=== PATIENT | male | born 1990 | race Hispanic/Latino ===

== ENCOUNTER 2023-12-22 13:52 | Emergency (ER) | payer SELFPAY ==
[~2023-12-22] VITALS: Ht 165.1 cm; Wt 117.0 kg
[2023-12-22] VITALS (8 sets, daily range): BP systolic 146–216; BP diastolic 96–129
[~2023-12-22 13:52] MED LIST: AMOXICILLIN500 MG OR; BENADRY2 EX; BENADRYL 50MG C50 MG PO; NO HOME MEDS; PRILOSEC20 MG/CAP PO; PROTONIX40 M2 PO
[2023-12-22] MEDS ORDERED: HYDROcodone 5 MG/Acetaminophen 325 MG/COMBO PO ONE (14:05)
[2023-12-22] MEDS ORDERED: IBUPAK600 MG PO (15:02)
[2023-12-22] MEDS ORDERED: HYDROCO/APAP1 TA9 PO (15:02)
== END 2023-12-22 16:21 | disposition home or self-care (01) | DRG 563 ==
LOC: ED 13:52
PROC: 0QSHXZZ Reposition Left Tibia, External Approach (ICD-10-PCS; principal; 2023-12-22)
DX: S82.852A Displaced trimalleolar fracture of left lower leg, initial encounter for closed fracture (principal); W01.0XXA Fall on same level from slipping, tripping and stumbling without subsequent striking against object, initial encounter